=== PATIENT | male | born 2000 | race African-American/Black ===

== ENCOUNTER 2023-09-03 19:41 | Emergency (ER) | payer SELFPAY ==
[2023-09-03 20:29] LABS: Bilirubin Neg (Negative); Blood, Urine Negative (Negative); Clarity Clear (Clear); Glucose, Urine (Dipstick) Normal (Negative); Ketone, Urine Negative (Negative); Leukocyte Negative (Negative); Nitrite Negative (Negative); Protein, Urine (Dipstick) 15 mg/dl (Neg-Trace); Specific Gravity, Urine 1.025 (1.005-1.030); Urobilinogen Normal mg/dL (Less than 2)
[2023-09-03 20:45] LABS: CAUTI Indications for Culture Pelvic or flank pain; RBC/HPF None Seen HPF (0-3); Squamous Epithelial None Seen HPF (0-3)
[2023-09-03 20:46] LABS: Bacteria/HPF Rare-Few HPF (None Seen)
[2023-09-03 20:47] LABS: Urine Culture Reflex No No
[2023-09-05 09:55] LABS: Chlam.trachomatis by PCR,Urine DETECTED (NotDetected); GC N.gonorrhoeae PCR,UrineVOID Not Detected (NotDetected)
== END 2023-09-03 21:30 | disposition home or self-care (01) ==
LOC: CSHERS 19:41
DX: R31.9 Hematuria, unspecified (principal)
CPT/HCPCS: 81001; 87491; 87591; 99283